=== PATIENT | male | born 1950 | race Caucasian/White ===

== ENCOUNTER 2017-10-01 19:46 | Emergency (ER) | payer MEDICARE, SELFPAY ==
[~2017-10-01] VITALS: Ht 165.1 cm; Wt 41.7 kg
[~2017-10-01 19:46] MED LIST: ALBU3IS INH; ALBU4 PO; AZIT250 PO; BENZ100A PO; COMBIVENT RESPIM4 GM INH; DULERA 100 MCG/13 GM INH; FLUSAL2505 INH; LEVFLO500 PO; LEVSOD50 PO; LISI20 PO; LOSA50 PO; MELO7.5 PO; Norvasc5 MG PO; PARO10 PO; PRED20 PO; Prednisone20 MG PO; TIOT18 INH; Zithromax250 MG PO
[2017-10-01 20:55] LABS: BASOPHILS ABSOLUTE AUTO 0.07 K/mm3 (0.00-0.23); BASOPHILS PERCENT AUTO 1 % (0-2); EOSINOPHILS ABSOLUTE AUTO 0.17 K/mm3 (0.00-0.68); EOSINOPHILS PERCENT AUTO 2 % (0-6); Hematocrit 44.2 % (37.0-53.0); Hemoglobin 15.2 g/dL (13.5-17.5); IMMATURE GRAN ABSOLUTE AUTO 0.02 K/mm3 (0.00-0.10); IMMATURE GRAN PERCENT AUTO 0 % (0-1); LYMPHOCYTES ABSOLUTE AUTO 1.75 K/mm3 (0.84-5.20); LYMPHOCYTES PERCENT AUTO 23 % (21-46); MONOCYTES PERCENT AUTO 7 % (4-13); Mean Corpuscular HGB 32.8 pg (26.0-34.0); Mean Corpuscular HGB Conc 34.4 g/dL (31.5-36.5); Mean Corpuscular Volume 96 fL (80-100); Mean Platelet Volume 9.1 fL (9.1-12.4); NEUTROPHILS ABSOLUTE AUTO 5.05 K/mm3 (1.96-9.15); NEUTROPHILS PERCENT AUTO 67 % (41-73); Platelet Count 261 K/mm3 (150-400); RDW Coefficient Variation 13.2 % (11.7-14.2); RDW Standard Deviation 46.3 fL (35.1-46.3); Red Blood Cell Count 4.63 M/mm3 (4.30-5.90); White Blood Cell Count 7.56 K/mm3 (4.00-11.30)
[2017-10-01 21:14] LABS: Alanine Aminotransfer (ALT/SGP 18 U/L (12-78); Albumin, Blood 3.8 g/dL (3.4-5.0); Alk Phos 85 U/L (50-136); Anion Gap 7 mmol/L (6-16); Aspartate Aminotrans (AST/SGOT 21 U/L (12-37); Bilirubin, Total 0.3 mg/dL (0.1-1.0); Blood Urea Nitrogen 15 mg/dL (8-24); Bun/Creatinine Ratio 17.1 (12.0-20.0); CO2, Blood 27 mmol/L (21-32); Chloride, Blood 100 mmol/L (98-108); Creatinine, Blood 0.88 mg/dL (0.60-1.20); Globulin, Blood 3.8 g/dL (2.2-4.0); Glomerular Filtration Rate >60 (60-); Glucose, Blood 99 mg/dL (70-99); Potassium, Blood 4.3 mmol/L (3.5-5.5); Sodium, Blood 134 mmol/L (136-145); Total Protein, Blood 7.6 g/dL (6.4-8.2); Troponin I <0.015 ng/mL (0.000-0.040)
[2017-10-02] MEDS ORDERED: Prednisone20 MG PO (01:35)
== END 2017-10-02 01:59 | disposition home or self-care (01) ==
LOC: ER 19:46
PROVIDERS: Emergency Medicine
DX: J44.1 Chronic obstructive pulmonary disease with (acute) exacerbation (principal); I10 Essential (primary) hypertension; E03.9 Hypothyroidism, unspecified; F17.200 Nicotine dependence, unspecified, uncomplicated; Z79.899 Other long term (current) drug therapy; Z79.52 Long term (current) use of systemic steroids
CPT/HCPCS: 36415; 71046; 80053; 83880; 84484; 85025; 93005; 93010; 94640; 96374; 99284; J2930

== ENCOUNTER 2017-12-20 10:16 | Inpatient (IN) | payer MEDICARE, SELFPAY ==
[~2017-12-20] VITALS: Ht 165.1 cm; Wt 43.2 kg
[2017-12-20 10:44] LABS: PCO2 Arterial 33.9 mmHg (35-45); PO2 Arterial 62.9 mmHg (80-100); pH Blood Arterial 7.45 (7.35-7.45)
[2017-12-20 10:55] LABS: BASOPHILS ABSOLUTE AUTO 0.12 K/mm3 (0.00-0.23); BASOPHILS PERCENT AUTO 1 % (0-2); EOSINOPHILS PERCENT AUTO 0 % (0-6); Hemoglobin 15.1 g/dL (13.5-17.5); IMMATURE GRAN ABSOLUTE AUTO 0.06 K/mm3 (0.00-0.10); IMMATURE GRAN PERCENT AUTO 0 % (0-1); LYMPHOCYTES ABSOLUTE AUTO 0.75 K/mm3 (0.84-5.20); LYMPHOCYTES PERCENT AUTO 5 % (21-46); MONOCYTES ABSOLUTE AUTO 0.71 K/mm3 (0.16-1.47); MONOCYTES PERCENT AUTO 5 % (4-13); Mean Corpuscular HGB 32.1 pg (26.0-34.0); Mean Corpuscular HGB Conc 33.6 g/dL (31.5-36.5); Mean Corpuscular Volume 96 fL (80-100); Mean Platelet Volume 9.2 fL (9.1-12.4); NEUTROPHILS PERCENT AUTO 88 % (41-73); Platelet Count 284 K/mm3 (150-400); RDW Coefficient Variation 12.5 % (11.7-14.2); RDW Standard Deviation 44.8 fL (35.1-46.3); Red Blood Cell Count 4.71 M/mm3 (4.30-5.90); White Blood Cell Count 13.84 K/mm3 (4.00-11.30)
[2017-12-20 11:23] LABS: Alanine Aminotransfer (ALT/SGP 25 U/L (12-78); Albumin, Blood 3.9 g/dL (3.4-5.0); Albumin/Globulin Ratio 0.8 (0.8-1.8); Alk Phos 99 U/L (50-136); Anion Gap 9 mmol/L (6-16); Aspartate Aminotrans (AST/SGOT 26 U/L (12-37); Bilirubin, Total 0.7 mg/dL (0.1-1.0); Blood Urea Nitrogen 14 mg/dL (8-24); Bun/Creatinine Ratio 15.2 (12.0-20.0); CO2, Blood 24 mmol/L (21-32); Calcium, Blood 9.7 mg/dL (8.5-10.1); Chloride, Blood 92 mmol/L (98-108); Creatinine, Blood 0.92 mg/dL (0.60-1.20); Globulin, Blood 4.6 g/dL (2.2-4.0); Glomerular Filtration Rate >60 (60-); Glucose, Blood 101 mg/dL (70-99); Potassium, Blood 4.4 mmol/L (3.5-5.5); Sodium, Blood 125 mmol/L (136-145); Total Protein, Blood 8.5 g/dL (6.4-8.2); Troponin I <0.015 ng/mL (0.000-0.040)
[2017-12-20] MEDS ORDERED: AMLO5 PO (12:14)
[2017-12-20] MEDS ORDERED: CLON.1 PO (12:15)
[2017-12-20] MEDS ORDERED: ALBU3IS INH (12:16)
[2017-12-20 15:24] LABS: BASOPHILS ABSOLUTE AUTO 0.07 K/mm3 (0.00-0.23); BASOPHILS PERCENT AUTO 1 % (0-2); EOSINOPHILS PERCENT AUTO 0 % (0-6); Hematocrit 39.6 % (37.0-53.0); Hemoglobin 13.6 g/dL (13.5-17.5); IMMATURE GRAN ABSOLUTE AUTO 0.05 K/mm3 (0.00-0.10); IMMATURE GRAN PERCENT AUTO 0 % (0-1); LYMPHOCYTES ABSOLUTE AUTO 0.63 K/mm3 (0.84-5.20); LYMPHOCYTES PERCENT AUTO 5 % (21-46); MONOCYTES PERCENT AUTO 4 % (4-13); Mean Corpuscular HGB 32.2 pg (26.0-34.0); Mean Corpuscular HGB Conc 34.3 g/dL (31.5-36.5); Mean Corpuscular Volume 94 fL (80-100); Mean Platelet Volume 9.2 fL (9.1-12.4); NEUTROPHILS ABSOLUTE AUTO 10.75 K/mm3 (1.96-9.15); NEUTROPHILS PERCENT AUTO 90 % (41-73); Platelet Count 231 K/mm3 (150-400); RDW Coefficient Variation 12.6 % (11.7-14.2); RDW Standard Deviation 43.8 fL (35.1-46.3); Red Blood Cell Count 4.23 M/mm3 (4.30-5.90)
[2017-12-20 15:39] LABS: International Normalized Ratio 1.07; Prothrombin Time Results 11.2 Sec (9.7-11.5)
[2017-12-20] MEDS ORDERED: ALBU90OI6 INH (16:55)
[2017-12-20] MEDS ORDERED: STIOLTO RESPIMAT4 GM (16:55)
[2017-12-21 04:29] LABS: BASOPHILS ABSOLUTE AUTO 0.01 K/mm3 (0.00-0.23); BASOPHILS PERCENT AUTO 0 % (0-2); EOSINOPHILS PERCENT AUTO 0 % (0-6); Hematocrit 39.2 % (37.0-53.0); Hemoglobin 13.2 g/dL (13.5-17.5); IMMATURE GRAN ABSOLUTE AUTO 0.09 K/mm3 (0.00-0.10); IMMATURE GRAN PERCENT AUTO 1 % (0-1); LYMPHOCYTES ABSOLUTE AUTO 0.26 K/mm3 (0.84-5.20); LYMPHOCYTES PERCENT AUTO 2 % (21-46); MONOCYTES ABSOLUTE AUTO 0.17 K/mm3 (0.16-1.47); MONOCYTES PERCENT AUTO 1 % (4-13); Mean Corpuscular HGB Conc 33.7 g/dL (31.5-36.5); Mean Corpuscular Volume 95 fL (80-100); Mean Platelet Volume 9.2 fL (9.1-12.4); NEUTROPHILS ABSOLUTE AUTO 11.93 K/mm3 (1.96-9.15); NEUTROPHILS PERCENT AUTO 96 % (41-73); Platelet Count 200 K/mm3 (150-400); RDW Coefficient Variation 12.4 % (11.7-14.2); RDW Standard Deviation 43.8 fL (35.1-46.3); Red Blood Cell Count 4.12 M/mm3 (4.30-5.90); White Blood Cell Count 12.46 K/mm3 (4.00-11.30)
[2017-12-21 04:53] LABS: Anion Gap 4 mmol/L (6-16); Blood Urea Nitrogen 16 mg/dL (8-24); Bun/Creatinine Ratio 20.2 (12.0-20.0); CO2, Blood 28 mmol/L (21-32); Calcium, Blood 8.1 mg/dL (8.5-10.1); Chloride, Blood 98 mmol/L (98-108); Creatinine, Blood 0.79 mg/dL (0.60-1.20); Glomerular Filtration Rate >60 (60-); Glucose, Blood 175 mg/dL (70-99); Potassium, Blood 3.8 mmol/L (3.5-5.5); Sodium, Blood 130 mmol/L (136-145)
[2017-12-21 05:01] LABS: Thyroxine (T4) 5.3 ug/dL (4.5-12.1)
[2017-12-22 04:51] LABS: BASOPHILS ABSOLUTE AUTO 0.01 K/mm3 (0.00-0.23); BASOPHILS PERCENT AUTO 0 % (0-2); EOSINOPHILS PERCENT AUTO 0 % (0-6); Hematocrit 37.3 % (37.0-53.0); Hemoglobin 12.6 g/dL (13.5-17.5); IMMATURE GRAN ABSOLUTE AUTO 0.14 K/mm3 (0.00-0.10); IMMATURE GRAN PERCENT AUTO 1 % (0-1); LYMPHOCYTES ABSOLUTE AUTO 0.26 K/mm3 (0.84-5.20); LYMPHOCYTES PERCENT AUTO 2 % (21-46); MONOCYTES ABSOLUTE AUTO 0.37 K/mm3 (0.16-1.47); MONOCYTES PERCENT AUTO 2 % (4-13); Mean Corpuscular HGB 32.1 pg (26.0-34.0); Mean Corpuscular HGB Conc 33.8 g/dL (31.5-36.5); Mean Corpuscular Volume 95 fL (80-100); Mean Platelet Volume 9.4 fL (9.1-12.4); NEUTROPHILS PERCENT AUTO 95 % (41-73); Platelet Count 220 K/mm3 (150-400); RDW Coefficient Variation 12.5 % (11.7-14.2); RDW Standard Deviation 43.8 fL (35.1-46.3); Red Blood Cell Count 3.93 M/mm3 (4.30-5.90); White Blood Cell Count 15.88 K/mm3 (4.00-11.30)
[2017-12-22 05:13] LABS: Anion Gap 9 mmol/L (6-16); Blood Urea Nitrogen 19 mg/dL (8-24); Bun/Creatinine Ratio 25.2 (12.0-20.0); CO2, Blood 26 mmol/L (21-32); Calcium, Blood 8.3 mg/dL (8.5-10.1); Chloride, Blood 98 mmol/L (98-108); Creatinine, Blood 0.75 mg/dL (0.60-1.20); Glomerular Filtration Rate >60 (60-); Glucose, Blood 148 mg/dL (70-99); Potassium, Blood 3.7 mmol/L (3.5-5.5); Sodium, Blood 133 mmol/L (136-145)
[2017-12-24 05:04] LABS: Hematocrit 38.9 % (37.0-53.0); Hemoglobin 12.9 g/dL (13.5-17.5); Mean Corpuscular HGB 31.9 pg (26.0-34.0); Mean Corpuscular HGB Conc 33.2 g/dL (31.5-36.5); Mean Corpuscular Volume 96 fL (80-100); Mean Platelet Volume 9.2 fL (9.1-12.4); Platelet Count 209 K/mm3 (150-400); RDW Coefficient Variation 12.4 % (11.7-14.2); RDW Standard Deviation 44.3 fL (35.1-46.3); Red Blood Cell Count 4.04 M/mm3 (4.30-5.90); White Blood Cell Count 6.73 K/mm3 (4.00-11.30)
[2017-12-24 05:20] LABS: Anion Gap 6 mmol/L (6-16); Blood Urea Nitrogen 16 mg/dL (8-24); Bun/Creatinine Ratio 24.8 (12.0-20.0); CO2, Blood 30 mmol/L (21-32); Calcium, Blood 8.5 mg/dL (8.5-10.1); Chloride, Blood 97 mmol/L (98-108); Creatinine, Blood 0.65 mg/dL (0.60-1.20); Glomerular Filtration Rate >60 (60-); Glucose, Blood 97 mg/dL (70-99); Sodium, Blood 133 mmol/L (136-145)
[2017-12-25] MEDS ORDERED: GUAI600T33 PO (10:19)
[2017-12-25] MEDS ORDERED: LIOT5 PO (10:20)
[2017-12-25] MEDS ORDERED: LEVSOD75 PO (10:20)
[2017-12-25] MEDS ORDERED: SACC250C PO (10:21)
[2017-12-25] MEDS ORDERED: PRED20 PO (10:21)
[2017-12-25] MEDS ORDERED: DOXY100 PO (10:22)
== END 2017-12-25 14:20 | disposition home or self-care (01) | DRG 871 ==
LOC: ER 10:16 → MEDS 14:14 → ICUW 14:14 → MEDS 12-21 14:56
PROVIDERS: Emergency Medicine; Internal Medicine
DX: A41.9 Sepsis, unspecified organism (principal); J18.9 Pneumonia, unspecified organism; J96.21 Acute and chronic respiratory failure with hypoxia; E43 Unspecified severe protein-calorie malnutrition; Z68.1 Body mass index [BMI] 19.9 or less, adult; E87.1 Hypo-osmolality and hyponatremia; J44.0 Chronic obstructive pulmonary disease with (acute) lower respiratory infection; R65.20 Severe sepsis without septic shock; I10 Essential (primary) hypertension; E03.9 Hypothyroidism, unspecified; J20.9 Acute bronchitis, unspecified; F17.210 Nicotine dependence, cigarettes, uncomplicated; Z79.899 Other long term (current) drug therapy
CPT/HCPCS: 36415; 36600; 71046; 80048; 80053; 82803; 83605; 83880; 84436; 84443; 84481; 84484; 85025; 85027; 85610; 85730; 87040; 93005; 93010; 94640; 94760; 94761; 96365; 96366; 96375; 99285; J0456; J0696; J1650; J2930; J7030; J7050; J7120

== ENCOUNTER 2018-11-01 13:09 | Inpatient (IN) | payer MEDICARE ==
[~2018-11-01] VITALS: Ht 175.3 cm; Wt 36.8 kg
[~2018-11-01 13:09] MED LIST changes: +ALBU90OI6 INH; +AMLO5 PO; +CLON.1 PO; +DOXY100 PO; +GUAI600T33 PO; +LEVSOD75 PO; +LIOT5 PO; +SACC250C PO; +STIOLTO RESPIMAT4 GM
[2018-11-01] MEDS ORDERED: OXYM.05NI (13:57)
[2018-11-01] MEDS ORDERED: Prednisone20 MG PO (13:57)
[2018-11-01 14:43] LABS: BASOPHILS ABSOLUTE AUTO 0.06 K/mm3 (0.00-0.23); BASOPHILS PERCENT AUTO 1 % (0-2); EOSINOPHILS ABSOLUTE AUTO 0.08 K/mm3 (0.00-0.68); EOSINOPHILS PERCENT AUTO 1 % (0-6); Hematocrit 39.8 % (37.0-53.0); Hemoglobin 12.9 g/dL (13.5-17.5); IMMATURE GRAN ABSOLUTE AUTO 0.01 K/mm3 (0.00-0.10); IMMATURE GRAN PERCENT AUTO 0 % (0-1); LYMPHOCYTES ABSOLUTE AUTO 1.06 K/mm3 (0.84-5.20); LYMPHOCYTES PERCENT AUTO 17 % (21-46); MONOCYTES ABSOLUTE AUTO 0.48 K/mm3 (0.16-1.47); MONOCYTES PERCENT AUTO 8 % (4-13); Mean Corpuscular HGB 32.8 pg (26.0-34.0); Mean Corpuscular HGB Conc 32.4 g/dL (31.5-36.5); Mean Corpuscular Volume 101 fL (80-100); Mean Platelet Volume 9.1 fL (9.1-12.4); NEUTROPHILS PERCENT AUTO 73 % (41-73); Platelet Count 255 K/mm3 (150-400); RDW Coefficient Variation 13.9 % (11.7-14.2); RDW Standard Deviation 52.2 fL (35.1-46.3); Red Blood Cell Count 3.93 M/mm3 (4.30-5.90); White Blood Cell Count 6.29 K/mm3 (4.00-11.30)
[2018-11-01 14:54] LABS: Alanine Aminotransfer (ALT/SGP 20 U/L (12-78); Albumin, Blood 3.7 g/dL (3.4-5.0); Albumin/Globulin Ratio 1.1 (0.8-1.8); Alk Phos 72 U/L (50-136); Anion Gap 9 mmol/L (6-16); Aspartate Aminotrans (AST/SGOT 30 U/L (12-37); Bilirubin, Total 0.4 mg/dL (0.1-1.0); Blood Urea Nitrogen 16 mg/dL (8-24); Bun/Creatinine Ratio 19.6 (12.0-20.0); CO2, Blood 28 mmol/L (21-32); Calcium, Blood 8.7 mg/dL (8.5-10.1); Chloride, Blood 96 mmol/L (98-108); Creatinine, Blood 0.82 mg/dL (0.60-1.20); Globulin, Blood 3.5 g/dL (2.2-4.0); Glomerular Filtration Rate >60 (60-); Glucose, Blood 96 mg/dL (70-99); Potassium, Blood 4.1 mmol/L (3.5-5.5); Sodium, Blood 133 mmol/L (136-145); Total Protein, Blood 7.2 g/dL (6.4-8.2); Troponin I <0.015 ng/mL (0.000-0.040)
[2018-11-01 15:02] LABS: Influenza A Negative (NEGATIVE); Influenza B Negative (NEGATIVE)
--- NOTE | 2018-11-01 18:49 | NUR ---
SUMMARY PT ADMITTED FROM THE ER FOR COPD EXACERBATION, PT IS ALERT AND ORIENTED, IS A ONE PERSON TO STANDBY ASSIST, PT GETS SOB WITH ANY ACTIVITY, PT ABLE TO USE THE URINAL INDEPENDENTLY AND STATES HE HAS NO ISSUES WITH SWALLOWING, PT HAS NO TEETH SO A SOFT DIET HAS BEEN ORDERED, PT LIVES AT HOME WITH HIS SPOUSE WHO HAS DEMENTIA, HE CARES FOR HER WITH ASSISTANCE FROM HIS GRAND DAUGHTER WHO IS WITH HER NOW, PT ON 2L NC AT BASE LINE FROM [facility], HIS HOME TANK IS IN THE ROOM, PT IS PLEASANT AND COOPERATIVE WITH CARE, VSS, NO ACUTE CHANGES, WILL CONT TO MONITOR
--- NOTE | 2018-11-02 04:29 | NUR ---
SHIFT SUMMARY PT HAS HAD UNEVENTFUL NIGHT, HAS SLEPT OFF AND ON T/O THE NIGHT. HAS BEEN USING URINAL AT BEDSIDE. PT BECOMES MORE DYSPNEIC WITH EXERTION AND USES PURSED LIP BREATHING. OXYGEN ON AT 2L/NC CONTINUOUS. PT OFFERS NO C/O'S OTHER THAN CRAMPING IN HIS FEET EARLY ON IN SHIFT. PT RECEIVED TYLENOL WITH RELIEF. WILL CONTINUE TO MONITOR.
[2018-11-02 05:55] LABS: Anion Gap 10 mmol/L (6-16); Blood Urea Nitrogen 15 mg/dL (8-24); Bun/Creatinine Ratio 17.8 (12.0-20.0); CO2, Blood 29 mmol/L (21-32); Calcium, Blood 8.7 mg/dL (8.5-10.1); Chloride, Blood 94 mmol/L (98-108); Creatinine, Blood 0.84 mg/dL (0.60-1.20); Glomerular Filtration Rate >60 (60-); Glucose, Blood 153 mg/dL (70-99); Potassium, Blood 4.1 mmol/L (3.5-5.5); Sodium, Blood 133 mmol/L (136-145)
--- NOTE | 2018-11-02 18:40 | NUR ---
SHIFT SUMMARY PLEASANT TODAY WITH NO C/O. EATING AND DRINKING WELL. FAMILY TO VISIT. 2L NC HERE AND AT HOME. DYSPNEA ON EXERTION BUT ABLE TO WALK TO BATHROOM WITH SBA QUITE WELL. CONTINENT. DIURETICS. BLE SWELLING IMPROVED.
--- NOTE | 2018-11-03 04:46 | NUR ---
SHIFT SUMMARY NO CHANGES THIS SHIFT. PT WAS AWAKE FOR MOST OF THE NIGHT, BUT HAS BEEN ABLE TO GET SOME REST DURING SECOND HALF OF SHIFT. PT HAS BEEN MEDICATED X1 WITH TYLENOL FOR HEADACHE WHICH PROVIDED RELEIF. PT ALSO MEDICATED WITH TUMS FOR HEART BURN. O2 IN PLACE, LUNG SOUNDS WITH WHEEZES TO UPPER LOBES, DIMINISHED IN THE BASES. PT REPORTS NON PRODUCTIVE COUGH, AND STATES HE FEELS LIKE HE HAS SOMETHING TO COUGH UP, BUT THAT HE IS UNABLE. PT HAS BEEN INDEPENDENT IN ROOM. VOIDING WITHOUT DIFFICULTY. ASSESSMENT OTHERWISE HAS REMAINED UNCHANGED. WILL CONTINUE TO MONITOR AND REPORT TO ONCOMING RN.
[2018-11-03 05:53] LABS: Anion Gap 8 mmol/L (6-16); Blood Urea Nitrogen 17 mg/dL (8-24); Bun/Creatinine Ratio 21.3 (12.0-20.0); CO2, Blood 34 mmol/L (21-32); Chloride, Blood 88 mmol/L (98-108); Glomerular Filtration Rate >60 (60-); Glucose, Blood 159 mg/dL (70-99); Potassium, Blood 4.1 mmol/L (3.5-5.5); Sodium, Blood 130 mmol/L (136-145)
--- NOTE | 2018-11-03 18:53 | NUR ---
SHIFT SUMMARY PATIENT A&O X4, INDEPENDENT IN THE ROOM. MEDICATED FOR A HEADACHE X1. C/O REFLUX THROUGHOUT THE SHIFT. MEDICATED PER Nov. DENIES ANY SOB OR NAUSEA. O2 @ 2L NC. BED IN LOWEST POSITION, CALL LIGHT WITHIN REACH. NO ACUTE CHANGES. RN WILL CONTINUE TO MONITOR.
--- NOTE | 2018-11-04 04:59 | NUR ---
SHIFT SUMMARY NO ACUTE CHANGES. PT COMPLAINS OF ACID REFLUX THAT IS RELIEVED WITH TUMS. A/OX4, INDEPENDENT AND AMBULATORY IN THE ROOM. LUNGS DIMINISHED T/O, 2L O2 IN PLACE. VITALS HAVE BEEN STABLE. ASSESSMENT UNCHANGED. WILL CONTINUE TO MONITOR AND REPORT TO ONCOMING RN.
[2018-11-04] MEDS ORDERED: STIOLTO RESPIMAT4 GM (05:42)
[2018-11-04] MEDS ORDERED: GUAI600T33 PO (11:27)
[2018-11-04] MEDS ORDERED: PRED20 (11:31)
[2018-11-04] MEDS ORDERED: SACC250C PO (11:32)
[2018-11-04] MEDS ORDERED: TUMS300 MG PO (11:34)
[2018-11-04] MEDS ORDERED: CALCIUM 600 +1 EAC4 PO (11:35)
[2018-11-04] MEDS ORDERED: HYDCHL25 PO (11:36)
[2018-11-04] MEDS ORDERED: PANT40 PO (11:36)
[2018-11-04] MEDS ORDERED: AZIT500 PO (11:37)
[2018-11-04] MEDS ORDERED: ALBU2.5V5 NEB (11:37)
[2018-11-04] MEDS ORDERED: BUDE.25 NEB (11:39)
--- NOTE | 2018-11-04 14:07 | NUR ---
DISCHARGE [facility] PATIENT A&O X4. ALL DISCHARGE INFORMATION REVIEWED. IV D/C, WNL. PATIENT DISCHARGED WITH PORTLABLE OXYGEN TANK. GRANDDAUGHTER AT HIS SIDE. ALL BELONGINGS IN HAND. ESCORTED OUT BY REPAIR ARMATURE WINDER IN WHEELCHAIR.
[2018-11-19] MEDS ORDERED: **INCOMPLETE MED REC (17:02)
[2018-11-19] MEDS ORDERED: AMLO5 PO (17:04)
[2018-11-19] MEDS ORDERED: TRAZ50 PO (17:05)
[2018-11-19] MEDS ORDERED: HYDCHL25 PO (17:06)
[2018-11-19] MEDS ORDERED: Melatonin5 M1 PO (17:07)
[2018-11-19] MEDS ORDERED: CALCIUM 500 +1 EAC4 PO (17:09)
[2018-11-19] MEDS ORDERED: ALBU90OI INH (17:21)
[2018-11-19] MEDS ORDERED: STIOLTO RESPIMAT4 GM INH (17:21)
[2018-11-19] MEDS ORDERED: DULERA 200 MCG/13 GM INH (17:22)
[2018-11-21] MEDS ORDERED: GUAI600T33 PO (11:20)
[2018-11-21] MEDS ORDERED: PRED20 PO (11:22)
[2018-11-21] MEDS ORDERED: CLON.1 PO (13:34)
== END 2018-11-04 13:56 | disposition home or self-care (01) | DRG 190 ==
LOC: ER 13:09 → MEDS 13:10
PROVIDERS: Emergency Medicine; ADMIT Internal Medicine
DX: J44.0 Chronic obstructive pulmonary disease with (acute) lower respiratory infection (principal); E43 Unspecified severe protein-calorie malnutrition; E87.1 Hypo-osmolality and hyponatremia; J96.11 Chronic respiratory failure with hypoxia; Z68.1 Body mass index [BMI] 19.9 or less, adult; J20.9 Acute bronchitis, unspecified; J44.1 Chronic obstructive pulmonary disease with (acute) exacerbation; I10 Essential (primary) hypertension; E03.9 Hypothyroidism, unspecified; K21.9 Gastro-esophageal reflux disease without esophagitis; M19.90 Unspecified osteoarthritis, unspecified site; F17.210 Nicotine dependence, cigarettes, uncomplicated; Z99.81 Dependence on supplemental oxygen; Z79.899 Other long term (current) drug therapy
CPT/HCPCS: 36415; 71046; 80048; 80053; 83880; 84484; 85025; 87804; 93005; 93010; 94640; 94760; 96365; 99285-25; J0456; J0696; J1650; J2405; J2930; J3475; J7050

== ENCOUNTER 2018-12-05 20:32 | Emergency (ER) | payer MEDICARE ==
[~2018-12-05] VITALS: Ht 165.1 cm; Wt 39.9 kg
[~2018-12-05 20:32] MED LIST changes: +**INCOMPLETE MED REC; +ALBU2.5V5 NEB; +ALBU90OI INH; +AZIT500 PO; +BUDE.25 NEB; +CALCIUM 500 +1 EAC4 PO; +CALCIUM 600 +1 EAC4 PO; +DULERA 200 MCG/13 GM INH; +HYDCHL25 PO; +Melatonin5 M1 PO; +OXYM.05NI; +PANT40 PO; +PRED20; +STIOLTO RESPIMAT4 GM INH; +TRAZ50 PO; +TUMS300 MG PO
[2018-12-05 21:14] LABS: BASOPHILS ABSOLUTE AUTO 0.03 K/mm3 (0.00-0.23); BASOPHILS PERCENT AUTO 0 % (0-2); EOSINOPHILS ABSOLUTE AUTO 0.01 K/mm3 (0.00-0.68); EOSINOPHILS PERCENT AUTO 0 % (0-6); Hematocrit 41.8 % (37.0-53.0); IMMATURE GRAN ABSOLUTE AUTO 0.08 K/mm3 (0.00-0.10); IMMATURE GRAN PERCENT AUTO 1 % (0-1); LYMPHOCYTES ABSOLUTE AUTO 0.96 K/mm3 (0.84-5.20); LYMPHOCYTES PERCENT AUTO 6 % (21-46); MONOCYTES ABSOLUTE AUTO 0.95 K/mm3 (0.16-1.47); MONOCYTES PERCENT AUTO 6 % (4-13); Mean Corpuscular HGB 33.4 pg (26.0-34.0); Mean Corpuscular HGB Conc 33.5 g/dL (31.5-36.5); Mean Corpuscular Volume 100 fL (80-100); Mean Platelet Volume 8.4 fL (9.1-12.4); NEUTROPHILS ABSOLUTE AUTO 13.14 K/mm3 (1.96-9.15); NEUTROPHILS PERCENT AUTO 87 % (41-73); Platelet Count 281 K/mm3 (150-400); RDW Coefficient Variation 12.5 % (11.7-14.2); RDW Standard Deviation 46.4 fL (35.1-46.3); Red Blood Cell Count 4.19 M/mm3 (4.30-5.90); White Blood Cell Count 15.17 K/mm3 (4.00-11.30)
[2018-12-05 21:38] LABS: Alanine Aminotransfer (ALT/SGP 24 U/L (12-78); Albumin, Blood 3.7 g/dL (3.4-5.0); Albumin/Globulin Ratio 1.1 (0.8-1.8); Alk Phos 75 U/L (50-136); Anion Gap 7 mmol/L (6-16); Aspartate Aminotrans (AST/SGOT 24 U/L (12-37); Bilirubin, Total 0.5 mg/dL (0.1-1.0); Blood Urea Nitrogen 17 mg/dL (8-24); Bun/Creatinine Ratio 34.3 (12.0-20.0); CO2, Blood 33 mmol/L (21-32); Chloride, Blood 88 mmol/L (98-108); Globulin, Blood 3.5 g/dL (2.2-4.0); Glomerular Filtration Rate >60 (60-); Glucose, Blood 93 mg/dL (70-99); Potassium, Blood 3.8 mmol/L (3.5-5.5); Sodium, Blood 128 mmol/L (136-145); Total Protein, Blood 7.2 g/dL (6.4-8.2); Troponin I 0.021 ng/mL (0.000-0.040)
[2018-12-05] MEDS ORDERED: Zithromax250 MG PO (22:51)
== END 2018-12-06 00:02 | disposition home or self-care (01) ==
LOC: ER 20:32
PROVIDERS: Emergency Medicine
DX: J44.1 Chronic obstructive pulmonary disease with (acute) exacerbation (principal); E87.6 Hypokalemia; Z79.899 Other long term (current) drug therapy; Z79.52 Long term (current) use of systemic steroids; E03.9 Hypothyroidism, unspecified; I10 Essential (primary) hypertension; F17.210 Nicotine dependence, cigarettes, uncomplicated
CPT/HCPCS: 36415; 71046; 80053; 83880; 84484; 85025; 93005; 93010; 94640; 96374; 99285-25; J2930; J7030

== ENCOUNTER → 2018-12-13 | Outpatient (CLI) | payer MEDICARE ==
[~2018-12-13] MED LIST changes: +Nystatin15 GM TOP
== END | disposition home or self-care (01) ==
LOC: LAB EV 14:37 → LAB SHORT 14:37
DX: R60.0 Localized edema (principal)
CPT/HCPCS: 83880

== ENCOUNTER 2018-12-17 15:04 | Emergency (ER) | payer MEDICARE ==
[~2018-12-17] VITALS: Ht 165.1 cm; Wt 39.9 kg
[~2018-12-17 15:04] MED LIST changes: -Nystatin15 GM TOP
[2018-12-17 15:53] LABS: PCO2 Arterial 47.5 mmHg (35-45); PO2 Arterial 100 mmHg (80-100); pH Blood Arterial 7.44 (7.35-7.45)
[2018-12-17 16:20] LABS: BASOPHILS ABSOLUTE AUTO 0.02 K/mm3 (0.00-0.23); BASOPHILS PERCENT AUTO 0 % (0-2); EOSINOPHILS ABSOLUTE AUTO 0.07 K/mm3 (0.00-0.68); EOSINOPHILS PERCENT AUTO 1 % (0-6); Hematocrit 40.4 % (37.0-53.0); IMMATURE GRAN ABSOLUTE AUTO 0.03 K/mm3 (0.00-0.10); IMMATURE GRAN PERCENT AUTO 0 % (0-1); LYMPHOCYTES ABSOLUTE AUTO 1.21 K/mm3 (0.84-5.20); LYMPHOCYTES PERCENT AUTO 14 % (21-46); MONOCYTES ABSOLUTE AUTO 0.55 K/mm3 (0.16-1.47); MONOCYTES PERCENT AUTO 6 % (4-13); Mean Corpuscular HGB 32.9 pg (26.0-34.0); Mean Corpuscular HGB Conc 32.2 g/dL (31.5-36.5); Mean Corpuscular Volume 102 fL (80-100); Mean Platelet Volume 8.2 fL (9.1-12.4); NEUTROPHILS ABSOLUTE AUTO 6.87 K/mm3 (1.96-9.15); NEUTROPHILS PERCENT AUTO 79 % (41-73); Platelet Count 293 K/mm3 (150-400); RDW Coefficient Variation 12.5 % (11.7-14.2); RDW Standard Deviation 47.8 fL (35.1-46.3); Red Blood Cell Count 3.95 M/mm3 (4.30-5.90); White Blood Cell Count 8.75 K/mm3 (4.00-11.30)
[2018-12-17] MEDS ORDERED: Prednisone20 MG PO (16:42)
[2018-12-17 16:47] LABS: Alanine Aminotransfer (ALT/SGP 34 U/L (12-78); Albumin, Blood 2.8 g/dL (3.4-5.0); Albumin/Globulin Ratio 0.8 (0.8-1.8); Alk Phos 71 U/L (50-136); Anion Gap 4 mmol/L (6-16); Aspartate Aminotrans (AST/SGOT 24 U/L (12-37); Bilirubin, Total 0.3 mg/dL (0.1-1.0); Blood Urea Nitrogen 12 mg/dL (8-24); Bun/Creatinine Ratio 19.1 (12.0-20.0); CO2, Blood 33 mmol/L (21-32); Calcium, Blood 8.7 mg/dL (8.5-10.1); Chloride, Blood 94 mmol/L (98-108); Creatinine, Blood 0.63 mg/dL (0.60-1.20); Globulin, Blood 3.6 g/dL (2.2-4.0); Glomerular Filtration Rate >60 (60-); Glucose, Blood 82 mg/dL (70-99); Potassium, Blood 3.8 mmol/L (3.5-5.5); Sodium, Blood 131 mmol/L (136-145); Total Protein, Blood 6.4 g/dL (6.4-8.2)
[2018-12-17] MEDS ORDERED: Nystatin15 GM TOP (16:53)
== END 2018-12-17 17:15 | disposition home or self-care (01) ==
LOC: ER 15:04
PROVIDERS: Emergency Medicine
DX: J44.1 Chronic obstructive pulmonary disease with (acute) exacerbation (principal); L08.9 Local infection of the skin and subcutaneous tissue, unspecified; Z79.899 Other long term (current) drug therapy; Z79.52 Long term (current) use of systemic steroids; E03.9 Hypothyroidism, unspecified; I10 Essential (primary) hypertension; F17.200 Nicotine dependence, unspecified, uncomplicated
CPT/HCPCS: 36600; 71045; 80053; 82803; 85025; 93005; 93010; 99285-25

== ENCOUNTER 2018-12-17 22:20 | Emergency (ER) | payer MEDICARE ==
[~2018-12-17] VITALS: Ht 165.1 cm; Wt 39.9 kg
[~2018-12-17 22:20] MED LIST changes: +Nystatin15 GM TOP
[2018-12-18 00:56] LABS: BASOPHILS ABSOLUTE AUTO 0.03 K/mm3 (0.00-0.23); BASOPHILS PERCENT AUTO 0 % (0-2); EOSINOPHILS ABSOLUTE AUTO 0.05 K/mm3 (0.00-0.68); EOSINOPHILS PERCENT AUTO 1 % (0-6); Hematocrit 36.6 % (37.0-53.0); Hemoglobin 12.1 g/dL (13.5-17.5); IMMATURE GRAN ABSOLUTE AUTO 0.03 K/mm3 (0.00-0.10); IMMATURE GRAN PERCENT AUTO 0 % (0-1); LYMPHOCYTES ABSOLUTE AUTO 1.18 K/mm3 (0.84-5.20); LYMPHOCYTES PERCENT AUTO 14 % (21-46); MONOCYTES ABSOLUTE AUTO 0.64 K/mm3 (0.16-1.47); MONOCYTES PERCENT AUTO 8 % (4-13); Mean Corpuscular HGB 33.2 pg (26.0-34.0); Mean Corpuscular HGB Conc 33.1 g/dL (31.5-36.5); Mean Corpuscular Volume 100 fL (80-100); Mean Platelet Volume 8.2 fL (9.1-12.4); NEUTROPHILS ABSOLUTE AUTO 6.53 K/mm3 (1.96-9.15); NEUTROPHILS PERCENT AUTO 77 % (41-73); Platelet Count 260 K/mm3 (150-400); RDW Coefficient Variation 12.4 % (11.7-14.2); RDW Standard Deviation 45.8 fL (35.1-46.3); Red Blood Cell Count 3.65 M/mm3 (4.30-5.90); White Blood Cell Count 8.46 K/mm3 (4.00-11.30)
[2018-12-18 01:15] LABS: Alanine Aminotransfer (ALT/SGP 27 U/L (12-78); Albumin, Blood 2.5 g/dL (3.4-5.0); Albumin/Globulin Ratio 0.8 (0.8-1.8); Alk Phos 60 U/L (50-136); Anion Gap 8 mmol/L (6-16); Aspartate Aminotrans (AST/SGOT 25 U/L (12-37); Bilirubin, Total 0.3 mg/dL (0.1-1.0); Blood Urea Nitrogen 12 mg/dL (8-24); Bun/Creatinine Ratio 20.8 (12.0-20.0); CO2, Blood 27 mmol/L (21-32); Calcium, Blood 8.2 mg/dL (8.5-10.1); Chloride, Blood 95 mmol/L (98-108); Creatinine, Blood 0.58 mg/dL (0.60-1.20); Globulin, Blood 3.3 g/dL (2.2-4.0); Glomerular Filtration Rate >60 (60-); Glucose, Blood 119 mg/dL (70-99); Potassium, Blood 3.7 mmol/L (3.5-5.5); Sodium, Blood 130 mmol/L (136-145); Total Protein, Blood 5.8 g/dL (6.4-8.2); Troponin I 0.016 ng/mL (0.000-0.040)
== END 2018-12-18 03:01 | disposition home or self-care (01) ==
LOC: ER 22:20
PROVIDERS: Emergency Medicine
DX: J44.1 Chronic obstructive pulmonary disease with (acute) exacerbation (principal); Z79.899 Other long term (current) drug therapy; Z79.52 Long term (current) use of systemic steroids; E03.9 Hypothyroidism, unspecified; I10 Essential (primary) hypertension; F17.210 Nicotine dependence, cigarettes, uncomplicated
CPT/HCPCS: 36415; 80053; 84484; 85025; 93005; 93010; 94640; 96365; 99285-25; J2930

== ENCOUNTER 2018-12-23 13:58 | Emergency (ER) | payer MEDICARE ==
[~2018-12-23] VITALS: Ht 165.1 cm; Wt 39.9 kg
[2018-12-23 14:43] LABS: BASOPHILS ABSOLUTE AUTO 0.03 K/mm3 (0.00-0.23); BASOPHILS PERCENT AUTO 0 % (0-2); EOSINOPHILS ABSOLUTE AUTO 0.01 K/mm3 (0.00-0.68); EOSINOPHILS PERCENT AUTO 0 % (0-6); Hematocrit 40.3 % (37.0-53.0); Hemoglobin 13.1 g/dL (13.5-17.5); IMMATURE GRAN ABSOLUTE AUTO 0.07 K/mm3 (0.00-0.10); IMMATURE GRAN PERCENT AUTO 1 % (0-1); LYMPHOCYTES ABSOLUTE AUTO 0.61 K/mm3 (0.84-5.20); LYMPHOCYTES PERCENT AUTO 5 % (21-46); MONOCYTES ABSOLUTE AUTO 0.22 K/mm3 (0.16-1.47); MONOCYTES PERCENT AUTO 2 % (4-13); Mean Corpuscular HGB 33.4 pg (26.0-34.0); Mean Corpuscular HGB Conc 32.5 g/dL (31.5-36.5); Mean Platelet Volume 8.6 fL (9.1-12.4); NEUTROPHILS PERCENT AUTO 93 % (41-73); Platelet Count 386 K/mm3 (150-400); RDW Coefficient Variation 12.5 % (11.7-14.2); RDW Standard Deviation 47.1 fL (35.1-46.3); Red Blood Cell Count 3.92 M/mm3 (4.30-5.90); White Blood Cell Count 13.54 K/mm3 (4.00-11.30)
[2018-12-23 14:57] LABS: Alanine Aminotransfer (ALT/SGP 31 U/L (12-78); Alk Phos 63 U/L (50-136); Anion Gap 7 mmol/L (6-16); Aspartate Aminotrans (AST/SGOT 24 U/L (12-37); Bilirubin, Total 0.3 mg/dL (0.1-1.0); Blood Urea Nitrogen 18 mg/dL (8-24); Bun/Creatinine Ratio 29.1 (12.0-20.0); CO2, Blood 28 mmol/L (21-32); Chloride, Blood 97 mmol/L (98-108); Creatinine, Blood 0.62 mg/dL (0.60-1.20); Glomerular Filtration Rate >60 (60-); Glucose, Blood 109 mg/dL (70-99); Potassium, Blood 4.3 mmol/L (3.5-5.5); Sodium, Blood 132 mmol/L (136-145)
[2018-12-23 14:59] LABS: Mean Corpuscular Volume 103 fL (80-100)
== END 2018-12-23 17:20 | disposition home or self-care (01) ==
LOC: ER 13:58
PROVIDERS: Physician Assistant
DX: J06.9 Acute upper respiratory infection, unspecified (principal); R06.02 Shortness of breath; F17.210 Nicotine dependence, cigarettes, uncomplicated; Z79.899 Other long term (current) drug therapy; Z79.52 Long term (current) use of systemic steroids
CPT/HCPCS: 36415; 71046; 80053; 84484; 85025; 93005; 93010; 99284-25

== ENCOUNTER 2018-12-30 22:11 | Emergency (ER) | payer MEDICARE, OTHER ==
[~2018-12-30] VITALS: Ht 165.1 cm; Wt 39.9 kg
[2018-12-30] MEDS ORDERED: PRED20 PO (22:21)
[2018-12-30 22:33] LABS: BASOPHILS ABSOLUTE AUTO 0.01 K/mm3 (0.00-0.23); BASOPHILS PERCENT AUTO 0 % (0-2); EOSINOPHILS ABSOLUTE AUTO 0.03 K/mm3 (0.00-0.68); EOSINOPHILS PERCENT AUTO 0 % (0-6); Hematocrit 39.8 % (37.0-53.0); IMMATURE GRAN ABSOLUTE AUTO 0.05 K/mm3 (0.00-0.10); IMMATURE GRAN PERCENT AUTO 1 % (0-1); LYMPHOCYTES ABSOLUTE AUTO 1.22 K/mm3 (0.84-5.20); LYMPHOCYTES PERCENT AUTO 13 % (21-46); MONOCYTES ABSOLUTE AUTO 0.59 K/mm3 (0.16-1.47); MONOCYTES PERCENT AUTO 6 % (4-13); Mean Corpuscular HGB 33.4 pg (26.0-34.0); Mean Corpuscular HGB Conc 32.7 g/dL (31.5-36.5); Mean Corpuscular Volume 102 fL (80-100); Mean Platelet Volume 8.5 fL (9.1-12.4); NEUTROPHILS ABSOLUTE AUTO 7.58 K/mm3 (1.96-9.15); NEUTROPHILS PERCENT AUTO 80 % (41-73); Platelet Count 277 K/mm3 (150-400); RDW Coefficient Variation 12.6 % (11.7-14.2); RDW Standard Deviation 47.4 fL (35.1-46.3); Red Blood Cell Count 3.89 M/mm3 (4.30-5.90); White Blood Cell Count 9.48 K/mm3 (4.00-11.30)
[2018-12-30 22:44] LABS: PCO2 Arterial 46.8 mmHg (35-45); PO2 Arterial 121 mmHg (80-100); pH Blood Arterial 7.44 (7.35-7.45)
[2018-12-30 22:54] LABS: Alanine Aminotransfer (ALT/SGP 26 U/L (12-78); Albumin, Blood 3.1 g/dL (3.4-5.0); Alk Phos 57 U/L (50-136); Anion Gap 5 mmol/L (6-16); Aspartate Aminotrans (AST/SGOT 20 U/L (12-37); Bilirubin, Total 0.3 mg/dL (0.1-1.0); Blood Urea Nitrogen 19 mg/dL (8-24); Bun/Creatinine Ratio 25.9 (12.0-20.0); CO2, Blood 33 mmol/L (21-32); Calcium, Blood 8.5 mg/dL (8.5-10.1); Chloride, Blood 97 mmol/L (98-108); Creatinine, Blood 0.73 mg/dL (0.60-1.20); Glomerular Filtration Rate >60 (60-); Glucose, Blood 184 mg/dL (70-99); Potassium, Blood 3.9 mmol/L (3.5-5.5); Sodium, Blood 135 mmol/L (136-145); Total Protein, Blood 6.1 g/dL (6.4-8.2)
[2018-12-31] MEDS ORDERED: Nystatin15 GM TOP (00:13)
== END 2018-12-31 00:40 | disposition home or self-care (01) ==
LOC: ER 22:11
PROVIDERS: Emergency Medicine
DX: J44.9 Chronic obstructive pulmonary disease, unspecified (principal); I10 Essential (primary) hypertension; E03.9 Hypothyroidism, unspecified; F17.210 Nicotine dependence, cigarettes, uncomplicated
CPT/HCPCS: 36415; 36600; 71045; 80053; 82803; 83605; 85025; 93005; 93010; 94644; 99284-25

== ENCOUNTER 2019-01-06 17:33 | Emergency (ER) | payer MEDICARE, OTHER ==
[~2019-01-06] VITALS: Ht 165.1 cm; Wt 39.0 kg
[~2019-01-06 17:33] MED LIST changes: +NICO21TP TOP; +SERT50 PO
== END 2019-01-06 19:04 | disposition home or self-care (01) ==
LOC: ER 17:33
DX: F41.0 Panic disorder [episodic paroxysmal anxiety] (principal); J44.9 Chronic obstructive pulmonary disease, unspecified; I10 Essential (primary) hypertension; F17.210 Nicotine dependence, cigarettes, uncomplicated; Z99.81 Dependence on supplemental oxygen
CPT/HCPCS: 99283; J2060

== ENCOUNTER 2019-01-18 17:22 | Emergency (ER) | payer MEDICARE, OTHER ==
[~2019-01-18] VITALS: Ht 165.1 cm; Wt 37.2 kg
[2019-01-18 17:56] LABS: BASOPHILS ABSOLUTE AUTO 0.01 K/mm3 (0.00-0.23); BASOPHILS PERCENT AUTO 0 % (0-2); EOSINOPHILS ABSOLUTE AUTO 0.01 K/mm3 (0.00-0.68); EOSINOPHILS PERCENT AUTO 0 % (0-6); Hematocrit 39.6 % (37.0-53.0); Hemoglobin 13.1 g/dL (13.5-17.5); IMMATURE GRAN ABSOLUTE AUTO 0.06 K/mm3 (0.00-0.10); IMMATURE GRAN PERCENT AUTO 1 % (0-1); LYMPHOCYTES ABSOLUTE AUTO 0.54 K/mm3 (0.84-5.20); LYMPHOCYTES PERCENT AUTO 5 % (21-46); MONOCYTES ABSOLUTE AUTO 0.46 K/mm3 (0.16-1.47); MONOCYTES PERCENT AUTO 4 % (4-13); Mean Corpuscular HGB 33.3 pg (26.0-34.0); Mean Corpuscular HGB Conc 33.1 g/dL (31.5-36.5); Mean Corpuscular Volume 101 fL (80-100); NEUTROPHILS ABSOLUTE AUTO 9.63 K/mm3 (1.96-9.15); NEUTROPHILS PERCENT AUTO 90 % (41-73); Platelet Count 254 K/mm3 (150-400); RDW Coefficient Variation 12.8 % (11.7-14.2); RDW Standard Deviation 47.9 fL (35.1-46.3); Red Blood Cell Count 3.93 M/mm3 (4.30-5.90); White Blood Cell Count 10.71 K/mm3 (4.00-11.30)
[2019-01-18 18:27] LABS: Alanine Aminotransfer (ALT/SGP 23 U/L (12-78); Albumin, Blood 3.2 g/dL (3.4-5.0); Albumin/Globulin Ratio 1.1 (0.8-1.8); Alk Phos 56 U/L (50-136); Anion Gap 5 mmol/L (6-16); Aspartate Aminotrans (AST/SGOT 17 U/L (12-37); Bilirubin, Total 0.3 mg/dL (0.1-1.0); Blood Urea Nitrogen 13 mg/dL (8-24); Bun/Creatinine Ratio 22.6 (12.0-20.0); CO2, Blood 30 mmol/L (21-32); Calcium, Blood 8.6 mg/dL (8.5-10.1); Chloride, Blood 97 mmol/L (98-108); Creatinine, Blood 0.57 mg/dL (0.60-1.20); Glomerular Filtration Rate >60 (60-); Glucose, Blood 103 mg/dL (70-99); Sodium, Blood 132 mmol/L (136-145); Total Protein, Blood 6.2 g/dL (6.4-8.2); Troponin I <0.015 ng/mL (0.000-0.040)
== END 2019-01-18 20:39 | disposition home or self-care (01) ==
LOC: ER 17:22
PROVIDERS: Emergency Medicine
DX: I16.0 Hypertensive urgency (principal); J44.1 Chronic obstructive pulmonary disease with (acute) exacerbation; Z79.899 Other long term (current) drug therapy; Z79.52 Long term (current) use of systemic steroids; F17.200 Nicotine dependence, unspecified, uncomplicated
CPT/HCPCS: 36415; 71046; 80053; 84484; 85025; 93005; 93010; 94644; 99284-25

== ENCOUNTER 2019-01-24 21:13 | Emergency (ER) | payer MEDICARE, OTHER ==
[~2019-01-24] VITALS: Ht 165.1 cm; Wt 37.2 kg
[2019-01-24 21:47] LABS: BASOPHILS ABSOLUTE AUTO 0.02 K/mm3 (0.00-0.23); BASOPHILS PERCENT AUTO 0 % (0-2); EOSINOPHILS ABSOLUTE AUTO 0.03 K/mm3 (0.00-0.68); EOSINOPHILS PERCENT AUTO 0 % (0-6); Hematocrit 41.9 % (37.0-53.0); Hemoglobin 13.7 g/dL (13.5-17.5); IMMATURE GRAN ABSOLUTE AUTO 0.04 K/mm3 (0.00-0.10); IMMATURE GRAN PERCENT AUTO 0 % (0-1); LYMPHOCYTES ABSOLUTE AUTO 1.38 K/mm3 (0.84-5.20); LYMPHOCYTES PERCENT AUTO 14 % (21-46); MONOCYTES ABSOLUTE AUTO 0.64 K/mm3 (0.16-1.47); MONOCYTES PERCENT AUTO 7 % (4-13); Mean Corpuscular HGB 33.2 pg (26.0-34.0); Mean Corpuscular HGB Conc 32.7 g/dL (31.5-36.5); Mean Corpuscular Volume 102 fL (80-100); Mean Platelet Volume 8.2 fL (9.1-12.4); NEUTROPHILS ABSOLUTE AUTO 7.54 K/mm3 (1.96-9.15); NEUTROPHILS PERCENT AUTO 78 % (41-73); Platelet Count 291 K/mm3 (150-400); RDW Coefficient Variation 12.5 % (11.7-14.2); RDW Standard Deviation 47.1 fL (35.1-46.3); Red Blood Cell Count 4.13 M/mm3 (4.30-5.90); White Blood Cell Count 9.65 K/mm3 (4.00-11.30)
[2019-01-24 22:03] LABS: Alanine Aminotransfer (ALT/SGP 22 U/L (12-78); Albumin, Blood 3.3 g/dL (3.4-5.0); Albumin/Globulin Ratio 1.1 (0.8-1.8); Alk Phos 54 U/L (50-136); Anion Gap 7 mmol/L (6-16); Aspartate Aminotrans (AST/SGOT 17 U/L (12-37); Bilirubin, Total 0.3 mg/dL (0.1-1.0); Blood Urea Nitrogen 15 mg/dL (8-24); Bun/Creatinine Ratio 23.3 (12.0-20.0); CO2, Blood 32 mmol/L (21-32); Calcium, Blood 8.5 mg/dL (8.5-10.1); Chloride, Blood 94 mmol/L (98-108); Creatinine, Blood 0.65 mg/dL (0.60-1.20); Globulin, Blood 3.1 g/dL (2.2-4.0); Glomerular Filtration Rate >60 (60-); Glucose, Blood 81 mg/dL (70-99); Potassium, Blood 4.5 mmol/L (3.5-5.5); Sodium, Blood 133 mmol/L (136-145); Total Protein, Blood 6.4 g/dL (6.4-8.2)
[2019-01-25] MEDS ORDERED: Prinivil5 MG PO (01:56)
== END 2019-01-25 02:50 | disposition home or self-care (01) ==
LOC: ER 21:13
PROVIDERS: Emergency Medicine
DX: R51 Headache (principal); I10 Essential (primary) hypertension; J44.9 Chronic obstructive pulmonary disease, unspecified; M19.90 Unspecified osteoarthritis, unspecified site; Z79.899 Other long term (current) drug therapy; F17.210 Nicotine dependence, cigarettes, uncomplicated
CPT/HCPCS: 36415; 71046; 80053; 85025; 93005; 93010; 94640; 96374; 96375; 99284-25; J0360; J1885; J2060

== ENCOUNTER 2019-01-31 20:30 | Emergency (ER) | payer MEDICARE, OTHER ==
[~2019-01-31] VITALS: Ht 165.1 cm; Wt 37.2 kg
[~2019-01-31 20:30] MED LIST changes: +Prinivil5 MG PO
[2019-01-31] MEDS ORDERED: AMLO5 PO (20:36)
[2019-01-31] MEDS ORDERED: TRAZ50 PO (20:37)
[2019-01-31] MEDS ORDERED: BUDE6HFA INH (20:38)
[2019-01-31] MEDS ORDERED: Allegra-D 12 H1 EACH PO (20:38)
[2019-01-31] MEDS ORDERED: SPIRIVA RESPIMAT4 GM PO (20:40)
[2019-01-31 20:49] LABS: BASOPHILS ABSOLUTE AUTO 0.03 K/mm3 (0.00-0.23); BASOPHILS PERCENT AUTO 0 % (0-2); EOSINOPHILS ABSOLUTE AUTO 0.03 K/mm3 (0.00-0.68); EOSINOPHILS PERCENT AUTO 0 % (0-6); Hematocrit 43.3 % (37.0-53.0); Hemoglobin 14.1 g/dL (13.5-17.5); IMMATURE GRAN ABSOLUTE AUTO 0.04 K/mm3 (0.00-0.10); IMMATURE GRAN PERCENT AUTO 1 % (0-1); LYMPHOCYTES ABSOLUTE AUTO 1.22 K/mm3 (0.84-5.20); LYMPHOCYTES PERCENT AUTO 14 % (21-46); MONOCYTES ABSOLUTE AUTO 0.67 K/mm3 (0.16-1.47); MONOCYTES PERCENT AUTO 8 % (4-13); Mean Corpuscular HGB 32.7 pg (26.0-34.0); Mean Corpuscular HGB Conc 32.6 g/dL (31.5-36.5); Mean Corpuscular Volume 101 fL (80-100); Mean Platelet Volume 8.3 fL (9.1-12.4); NEUTROPHILS ABSOLUTE AUTO 6.55 K/mm3 (1.96-9.15); NEUTROPHILS PERCENT AUTO 77 % (41-73); Platelet Count 339 K/mm3 (150-400); RDW Coefficient Variation 12.5 % (11.7-14.2); Red Blood Cell Count 4.31 M/mm3 (4.30-5.90); White Blood Cell Count 8.54 K/mm3 (4.00-11.30)
[2019-01-31 21:10] LABS: Alanine Aminotransfer (ALT/SGP 22 U/L (12-78); Albumin, Blood 3.5 g/dL (3.4-5.0); Alk Phos 64 U/L (50-136); Anion Gap 6 mmol/L (6-16); Aspartate Aminotrans (AST/SGOT 20 U/L (12-37); Bilirubin, Total 0.4 mg/dL (0.1-1.0); Blood Urea Nitrogen 16 mg/dL (8-24); Bun/Creatinine Ratio 27.5 (12.0-20.0); CO2, Blood 31 mmol/L (21-32); Calcium, Blood 9.1 mg/dL (8.5-10.1); Chloride, Blood 91 mmol/L (98-108); Creatinine, Blood 0.58 mg/dL (0.60-1.20); Globulin, Blood 3.6 g/dL (2.2-4.0); Glomerular Filtration Rate >60 (60-); Glucose, Blood 82 mg/dL (70-99); Potassium, Blood 5.2 mmol/L (3.5-5.5); Sodium, Blood 128 mmol/L (136-145); Total Protein, Blood 7.1 g/dL (6.4-8.2)
== END 2019-01-31 22:55 | disposition home or self-care (01) ==
LOC: ER 20:30
PROVIDERS: Emergency Medicine
DX: J44.1 Chronic obstructive pulmonary disease with (acute) exacerbation (principal); J96.11 Chronic respiratory failure with hypoxia; I10 Essential (primary) hypertension; F17.200 Nicotine dependence, unspecified, uncomplicated; Z79.899 Other long term (current) drug therapy
CPT/HCPCS: 71046; 80053; 84484; 85025; 93005; 93010; 94640; 96361; 96374; 99284-25; J2930; J7030

== ENCOUNTER 2019-05-09 15:30 | Emergency (ER) | payer MEDICARE, SELFPAY ==
[~2019-05-09] VITALS: Ht 165.1 cm; Wt 37.2 kg
[~2019-05-09 15:30] MED LIST changes: -ALBU90OI INH; +Allegra-D 12 H1 EACH PO; +BUDE6HFA INH; -SERT50 PO; +SPIRIVA RESPIMAT4 GM PO
[2019-05-09] MEDS ORDERED: PRED20 PO (15:36)
[2019-05-09 16:13] LABS: BASOPHILS ABSOLUTE AUTO 0.02 K/mm3 (0.00-0.23); BASOPHILS PERCENT AUTO 0 % (0-2); EOSINOPHILS ABSOLUTE AUTO 0.01 K/mm3 (0.00-0.68); EOSINOPHILS PERCENT AUTO 0 % (0-6); Hematocrit 39.8 % (37.0-53.0); Hemoglobin 13.4 g/dL (13.5-17.5); IMMATURE GRAN ABSOLUTE AUTO 0.03 K/mm3 (0.00-0.10); IMMATURE GRAN PERCENT AUTO 0 % (0-1); LYMPHOCYTES ABSOLUTE AUTO 0.59 K/mm3 (0.84-5.20); LYMPHOCYTES PERCENT AUTO 8 % (21-46); MONOCYTES ABSOLUTE AUTO 0.26 K/mm3 (0.16-1.47); MONOCYTES PERCENT AUTO 4 % (4-13); Mean Corpuscular HGB 34.7 pg (26.0-34.0); Mean Corpuscular HGB Conc 33.7 g/dL (31.5-36.5); Mean Corpuscular Volume 103 fL (80-100); Mean Platelet Volume 8.7 fL (9.1-12.4); NEUTROPHILS ABSOLUTE AUTO 6.25 K/mm3 (1.96-9.15); NEUTROPHILS PERCENT AUTO 87 % (41-73); Platelet Count 252 K/mm3 (150-400); RDW Coefficient Variation 13.2 % (11.7-14.2); RDW Standard Deviation 50.4 fL (35.1-46.3); Red Blood Cell Count 3.86 M/mm3 (4.30-5.90); White Blood Cell Count 7.16 K/mm3 (4.00-11.30)
[2019-05-09 16:32] LABS: Alanine Aminotransfer (ALT/SGP 19 U/L (12-78); Albumin, Blood 3.7 g/dL (3.4-5.0); Albumin/Globulin Ratio 1.2 (0.8-1.8); Alk Phos 48 U/L (50-136); Anion Gap 9 mmol/L (6-16); Aspartate Aminotrans (AST/SGOT 13 U/L (12-37); Bilirubin, Total 0.3 mg/dL (0.1-1.0); Blood Urea Nitrogen 11 mg/dL (8-24); Bun/Creatinine Ratio 19.3 (12.0-20.0); CO2, Blood 28 mmol/L (21-32); Calcium, Blood 8.7 mg/dL (8.5-10.1); Chloride, Blood 89 mmol/L (98-108); Creatinine, Blood 0.57 mg/dL (0.60-1.20); Glomerular Filtration Rate >60 (60-); Glucose, Blood 96 mg/dL (70-99); Potassium, Blood 4.4 mmol/L (3.5-5.5); Sodium, Blood 126 mmol/L (136-145); Total Protein, Blood 6.7 g/dL (6.4-8.2); Troponin I <0.015 ng/mL (0.000-0.040)
[2019-05-09 16:49] LABS: Base Excess Venous 4.5 mmol/L; Bicarbonate Venous 27.9 mmol/L (24.0-30.0); PCO2 Venous 45.1 mmHg (38-42); PO2 Venous 155 mmHg (38-42); pH Blood Venous 7.42 (7.34-7.37)
== END 2019-05-09 18:42 | disposition home or self-care (01) ==
LOC: ER 15:30
PROVIDERS: Emergency Medicine
DX: J44.9 Chronic obstructive pulmonary disease, unspecified (principal); E87.2 Acidosis; I10 Essential (primary) hypertension; E46 Unspecified protein-calorie malnutrition; Z68.1 Body mass index [BMI] 19.9 or less, adult; F17.200 Nicotine dependence, unspecified, uncomplicated
CPT/HCPCS: 71046; 80053; 82803; 83880; 84484; 85025; 93005; 93010; 94640; 94664; 96361; 96365; 96375; 99284-25; J2930; J3475; J7030

== ENCOUNTER 2019-05-18 12:07 | Emergency (ER) | payer MEDICARE, OTHER ==
[~2019-05-18] VITALS: Ht 165.1 cm; Wt 36.3 kg
[2019-05-18 12:49] LABS: BASOPHILS ABSOLUTE AUTO 0.02 K/mm3 (0.00-0.23); BASOPHILS PERCENT AUTO 0 % (0-2); EOSINOPHILS ABSOLUTE AUTO 0.02 K/mm3 (0.00-0.68); EOSINOPHILS PERCENT AUTO 0 % (0-6); Hematocrit 39.1 % (37.0-53.0); Hemoglobin 12.9 g/dL (13.5-17.5); IMMATURE GRAN ABSOLUTE AUTO 0.04 K/mm3 (0.00-0.10); IMMATURE GRAN PERCENT AUTO 1 % (0-1); LYMPHOCYTES ABSOLUTE AUTO 0.62 K/mm3 (0.84-5.20); LYMPHOCYTES PERCENT AUTO 7 % (21-46); MONOCYTES ABSOLUTE AUTO 0.35 K/mm3 (0.16-1.47); MONOCYTES PERCENT AUTO 4 % (4-13); Mean Corpuscular HGB 33.6 pg (26.0-34.0); Mean Corpuscular Volume 102 fL (80-100); Mean Platelet Volume 8.5 fL (9.1-12.4); NEUTROPHILS ABSOLUTE AUTO 7.33 K/mm3 (1.96-9.15); NEUTROPHILS PERCENT AUTO 88 % (41-73); Platelet Count 286 K/mm3 (150-400); RDW Coefficient Variation 13.2 % (11.7-14.2); RDW Standard Deviation 49.1 fL (35.1-46.3); Red Blood Cell Count 3.84 M/mm3 (4.30-5.90); White Blood Cell Count 8.38 K/mm3 (4.00-11.30)
[2019-05-18 13:03] LABS: Troponin I <0.015 ng/mL (0.000-0.040)
[2019-05-18 13:04] LABS: Alanine Aminotransfer (ALT/SGP 20 U/L (12-78); Albumin, Blood 3.5 g/dL (3.4-5.0); Albumin/Globulin Ratio 1.2 (0.8-1.8); Alk Phos 47 U/L (50-136); Anion Gap 7 mmol/L (6-16); Aspartate Aminotrans (AST/SGOT 12 U/L (12-37); Bilirubin, Total 0.3 mg/dL (0.1-1.0); Blood Urea Nitrogen 10 mg/dL (8-24); Bun/Creatinine Ratio 16.3 (12.0-20.0); CO2, Blood 32 mmol/L (21-32); Calcium, Blood 8.7 mg/dL (8.5-10.1); Chloride, Blood 92 mmol/L (98-108); Creatinine, Blood 0.61 mg/dL (0.60-1.20); Glomerular Filtration Rate >60 (60-); Glucose, Blood 89 mg/dL (70-99); Potassium, Blood 4.2 mmol/L (3.5-5.5); Sodium, Blood 131 mmol/L (136-145); Total Protein, Blood 6.5 g/dL (6.4-8.2)
== END 2019-05-18 14:21 | disposition home or self-care (01) ==
LOC: ER 12:07
PROVIDERS: Internal Medicine
DX: J44.1 Chronic obstructive pulmonary disease with (acute) exacerbation (principal); I10 Essential (primary) hypertension; F17.200 Nicotine dependence, unspecified, uncomplicated; Z79.899 Other long term (current) drug therapy; Z79.52 Long term (current) use of systemic steroids
CPT/HCPCS: 36415; 71046; 80053; 84484; 85025; 93005; 93010; 99285-25

== ENCOUNTER 2019-06-01 10:38 | Inpatient (IN) | payer MEDICARE, OTHER ==
[~2019-06-01] VITALS: Ht 152.4 cm; Wt 35.0 kg
[2019-06-01 11:18] LABS: BASOPHILS ABSOLUTE AUTO 0.04 K/mm3 (0.00-0.23); BASOPHILS PERCENT AUTO 1 % (0-2); EOSINOPHILS ABSOLUTE AUTO 0.07 K/mm3 (0.00-0.68); EOSINOPHILS PERCENT AUTO 1 % (0-6); Hematocrit 37.1 % (37.0-53.0); Hemoglobin 12.4 g/dL (13.5-17.5); IMMATURE GRAN ABSOLUTE AUTO 0.07 K/mm3 (0.00-0.10); IMMATURE GRAN PERCENT AUTO 1 % (0-1); LYMPHOCYTES ABSOLUTE AUTO 0.85 K/mm3 (0.84-5.20); LYMPHOCYTES PERCENT AUTO 10 % (21-46); MONOCYTES ABSOLUTE AUTO 0.53 K/mm3 (0.16-1.47); MONOCYTES PERCENT AUTO 6 % (4-13); Mean Corpuscular HGB 33.9 pg (26.0-34.0); Mean Corpuscular HGB Conc 33.4 g/dL (31.5-36.5); Mean Corpuscular Volume 101 fL (80-100); Mean Platelet Volume 8.4 fL (9.1-12.4); NEUTROPHILS ABSOLUTE AUTO 7.12 K/mm3 (1.96-9.15); NEUTROPHILS PERCENT AUTO 82 % (41-73); Platelet Count 263 K/mm3 (150-400); RDW Coefficient Variation 12.6 % (11.7-14.2); RDW Standard Deviation 47.5 fL (35.1-46.3); Red Blood Cell Count 3.66 M/mm3 (4.30-5.90); White Blood Cell Count 8.68 K/mm3 (4.00-11.30)
[2019-06-01 11:29] LABS: Alanine Aminotransfer (ALT/SGP 20 U/L (12-78); Albumin, Blood 3.4 g/dL (3.4-5.0); Albumin/Globulin Ratio 1.3 (0.8-1.8); Alk Phos 43 U/L (50-136); Anion Gap 5 mmol/L (6-16); Aspartate Aminotrans (AST/SGOT 14 U/L (12-37); Bilirubin, Total 0.4 mg/dL (0.1-1.0); Blood Urea Nitrogen 14 mg/dL (8-24); Bun/Creatinine Ratio 23.5 (12.0-20.0); CO2, Blood 31 mmol/L (21-32); Calcium, Blood 8.6 mg/dL (8.5-10.1); Chloride, Blood 94 mmol/L (98-108); Globulin, Blood 2.7 g/dL (2.2-4.0); Glomerular Filtration Rate >60 (60-); Glucose, Blood 110 mg/dL (70-99); Potassium, Blood 4.3 mmol/L (3.5-5.5); Sodium, Blood 130 mmol/L (136-145); Total Protein, Blood 6.1 g/dL (6.4-8.2)
[2019-06-01] MEDS ORDERED: ACET325 PO (13:53)
--- NOTE | 2019-06-01 17:57 | NUR ---
SHIFT SUMMARY PATIENT TO THE FLOOR IN THE 1500 HOUR. HE IS PLEASANT, ALERT AND ORIENTED, NO ACUTE CONCERNS AT THIS TIME PER THE PATIENT. HE IS BREATHING LABORED, AND DENIES ANY CHEST PAIN OR OTHER CONCERNS. HE STATES THIS HAPPENS OFTEN.
[2019-06-02 04:30] LABS: Base Excess Venous 3.2 mmol/L; Bicarbonate Venous 26.6 mmol/L (24.0-30.0); PCO2 Venous 44.4 mmHg (38-42); PO2 Venous 58.3 mmHg (38-42); pH Blood Venous 7.41 (7.34-7.37)
[2019-06-02 04:48] LABS: BASOPHILS PERCENT AUTO 0 % (0-2); EOSINOPHILS PERCENT AUTO 0 % (0-6); Hematocrit 38.5 % (37.0-53.0); Hemoglobin 12.9 g/dL (13.5-17.5); IMMATURE GRAN ABSOLUTE AUTO 0.02 K/mm3 (0.00-0.10); IMMATURE GRAN PERCENT AUTO 0 % (0-1); LYMPHOCYTES ABSOLUTE AUTO 0.32 K/mm3 (0.84-5.20); LYMPHOCYTES PERCENT AUTO 7 % (21-46); MONOCYTES ABSOLUTE AUTO 0.17 K/mm3 (0.16-1.47); MONOCYTES PERCENT AUTO 4 % (4-13); Mean Corpuscular HGB 34.1 pg (26.0-34.0); Mean Corpuscular HGB Conc 33.5 g/dL (31.5-36.5); Mean Corpuscular Volume 102 fL (80-100); Mean Platelet Volume 8.2 fL (9.1-12.4); NEUTROPHILS ABSOLUTE AUTO 4.06 K/mm3 (1.96-9.15); NEUTROPHILS PERCENT AUTO 89 % (41-73); Platelet Count 273 K/mm3 (150-400); RDW Coefficient Variation 12.2 % (11.7-14.2); RDW Standard Deviation 46.1 fL (35.1-46.3); Red Blood Cell Count 3.78 M/mm3 (4.30-5.90); White Blood Cell Count 4.57 K/mm3 (4.00-11.30)
--- NOTE | 2019-06-02 04:53 | NUR ---
SHIFT SUMMARY PT A&OX4, 1 PER ASSIST IN RM. ON 2L VIA NC, BASELINE O2. CONT PULSE OX SHOWS O2 SATS WNL, EVEN DURING EPISODES OF LABORED/DYSPNEIC BREATHING. LS DIM WHEEZE T/O, NEBS PER RT. SOLU MEDROL ADMINISTERED PER EMAR ORDERS. PT IS EXTREMELY THIN AND FRAIL, WEIGHS ROUGHLY 100 LBS, DIETARY CONSULT IS ORDERED. PT OFFERED SNACKS AND BEVERAGES OFTEN. PT REQUESTS BP MEDS HE TAKES AT HOME, CLONIDINE AND LISINOPRIL. CALL PLACED TO [facility], WHO DECLINES TO ORDER HOME MEDS AND DEFERS TO ATTENDING PHYSICIAN. WILL PASS ON IN REPORT. ADMINISTERD 1MG PO DILAUDID FOR AIR HUNGER, PROVIDES RELIEF. WILL CONT TO MONITOR AND PROVIDE CARE UNTIL PRESUMED BY ONCOMING RN.
[2019-06-02 05:11] LABS: Anion Gap 7 mmol/L (6-16); Blood Urea Nitrogen 16 mg/dL (8-24); Bun/Creatinine Ratio 30.4 (12.0-20.0); CO2, Blood 26 mmol/L (21-32); Calcium, Blood 8.9 mg/dL (8.5-10.1); Chloride, Blood 100 mmol/L (98-108); Creatinine, Blood 0.53 mg/dL (0.60-1.20); Glomerular Filtration Rate >60 (60-); Glucose, Blood 114 mg/dL (70-99); Potassium, Blood 4.4 mmol/L (3.5-5.5); Sodium, Blood 133 mmol/L (136-145)
--- NOTE | 2019-06-02 07:29 | NUR ---
ELEVATED BP PT BP ELEVATED AT [address] JACINTO CALLED & INFORMED. PT STATES HE NORMALLY GETS CLONIDINE TID & LISINOPRIL DAILY. DR. JACINTO ORDERED HOME MED DOSES FOR PT. WILL CONTINUE TO MONITOR.
--- NOTE | 2019-06-02 16:43 | NUR ---
SHIFT SUMMARY NO CHANGES IN ASSESSMENT AT THIS TIME. VSS. PT RESTING IN BED. POOR APPETITE. SNACKS PROVIDED WHEN REQUESTED. PT DENIES NEEDS AT THIS TIME. ONE DOSE OF DILADID GIVEN THIS AM TO HELP WITH AIR HUNGER. WILL CONTINUE TO MONITOR UNTIL TURNOVER IS COMPLETE.
--- NOTE | 2019-06-03 04:22 | NUR ---
SHIFT SUMMARY PT HAD NO ISSUES. PT SLEPT AFTER NIGHT TIME MEDS. PT CURRENTLY SLEEPING AND BREATHING EASY. CALL LIGHT IN REACH.
[2019-06-03] MEDS ORDERED: BUDE.25 NEB (11:40)
[2019-06-03] MEDS ORDERED: ALBU3IS (11:41)
--- NOTE | 2019-06-03 11:56 | NUR ---
Initial Visit: Palliative Care Consult for Advanced Care Planning. Pt is A&O and denies pain at this time. Pt reports 2/7 dyspnea at rest that worsens with exertion. He reports ability to ambulate approximatelyu 10 feet before SOB worsens. Pt denies nausea at this time. He reports intermittent mild depression due to his quality of life. Engaged in therapeutic discussion regarding Advanced Care Planning. Pt reports living at home with his who has medical issues of her own. He reports granddaughter assists with some of his and 's needs. Pt reports ability to dress himself but takes a while to complete due to dyspnea. He also reports ability to bathe himself but requires the use of transfer bench. Pt reports inability to cook for himself and has difficulty making his PCP appointments due to transportation issues. His granddaughter was taking him but recently had her drivers license revoked. He reports more difficulty with his ADLs and has significant decrease in his appetite. Discussed in home caregivers and Pt expresses interest in the Medicaid process. Instructed Pt that information will be passed to childcare directormanager Marsh. Educated Pt on disease process and discussed hospice as an option. Pt reports having conversation with family and is leaning towards this option but is not quite ready yet. Pt reports no other concerns at this time. Spoke with bedside nurse Ashleigh and discussed case. Ashleigh reports concerns regarding transportation issues as well. Left message with childcare director Salma regarding concerns. Palliative Care will remain available.
--- NOTE | 2019-06-03 14:09 | NUR ---
PT DISCHARGED. PT DISCHARGED AT 1330. PT IN STABLE CONDITION WITH VSS. PT EDUCATED ON DC INSTRUCTIONS & DENIED FURTHER NEED FOR INSTRUCTION. NEW MEDS FAXED TO [facility]. IV REMOVED & INTACT.
== END 2019-06-03 13:30 | disposition home or self-care (01) | DRG 189 ==
LOC: ER 10:38 → MEDS 14:07 → ENPENDDIS 06-03 11:16 → MEDS 06-03 13:30
PROVIDERS: Emergency Medicine; ADMIT Internal Medicine
DX: J96.21 Acute and chronic respiratory failure with hypoxia (principal); E43 Unspecified severe protein-calorie malnutrition; E87.1 Hypo-osmolality and hyponatremia; Z68.1 Body mass index [BMI] 19.9 or less, adult; J44.1 Chronic obstructive pulmonary disease with (acute) exacerbation; J96.22 Acute and chronic respiratory failure with hypercapnia; J44.9 Chronic obstructive pulmonary disease, unspecified; F17.210 Nicotine dependence, cigarettes, uncomplicated; Z99.81 Dependence on supplemental oxygen; F41.9 Anxiety disorder, unspecified; D63.8 Anemia in other chronic diseases classified elsewhere; I10 Essential (primary) hypertension; Z66 Do not resuscitate
CPT/HCPCS: 36415; 71045; 80048; 80053; 82803; 84145; 84484; 85025; 90670; 93005; 93010; 94640; 94644; 94664; 94760; 94762; 96374; 98960; 99285-25; 99407; A9270; J2920; J2930; J7030; J7512

== ENCOUNTER 2019-06-23 08:32 | Inpatient (IN) | payer MEDICARE, OTHER ==
[~2019-06-23] VITALS: Ht 165.1 cm; Wt 34.8 kg
[~2019-06-23 08:32] MED LIST changes: +ACET325 PO; +ALBU3IS
[2019-06-23 09:18] LABS: BASOPHILS ABSOLUTE AUTO 0.01 K/mm3 (0.00-0.23); BASOPHILS PERCENT AUTO 0 % (0-2); EOSINOPHILS ABSOLUTE AUTO 0.01 K/mm3 (0.00-0.68); EOSINOPHILS PERCENT AUTO 0 % (0-6); Hematocrit 40.2 % (37.0-53.0); Hemoglobin 13.3 g/dL (13.5-17.5); IMMATURE GRAN ABSOLUTE AUTO 0.02 K/mm3 (0.00-0.10); IMMATURE GRAN PERCENT AUTO 0 % (0-1); LYMPHOCYTES ABSOLUTE AUTO 0.27 K/mm3 (0.84-5.20); LYMPHOCYTES PERCENT AUTO 4 % (21-46); MONOCYTES ABSOLUTE AUTO 0.38 K/mm3 (0.16-1.47); MONOCYTES PERCENT AUTO 5 % (4-13); Mean Corpuscular HGB 34.8 pg (26.0-34.0); Mean Corpuscular HGB Conc 33.1 g/dL (31.5-36.5); Mean Corpuscular Volume 105 fL (80-100); Mean Platelet Volume 8.5 fL (9.1-12.4); NEUTROPHILS ABSOLUTE AUTO 6.57 K/mm3 (1.96-9.15); NEUTROPHILS PERCENT AUTO 91 % (41-73); Platelet Count 252 K/mm3 (150-400); RDW Coefficient Variation 12.9 % (11.7-14.2); RDW Standard Deviation 49.7 fL (35.1-46.3); Red Blood Cell Count 3.82 M/mm3 (4.30-5.90); White Blood Cell Count 7.26 K/mm3 (4.00-11.30)
[2019-06-23 09:49] LABS: Alanine Aminotransfer (ALT/SGP 20 U/L (12-78); Albumin, Blood 3.2 g/dL (3.4-5.0); Albumin/Globulin Ratio 0.8 (0.8-1.8); Alk Phos 51 U/L (50-136); Anion Gap 4 mmol/L (6-16); Aspartate Aminotrans (AST/SGOT 18 U/L (12-37); Bilirubin, Total 0.7 mg/dL (0.1-1.0); Blood Urea Nitrogen 13 mg/dL (8-24); Bun/Creatinine Ratio 23.6 (12.0-20.0); CO2, Blood 30 mmol/L (21-32); Calcium, Blood 9.1 mg/dL (8.5-10.1); Chloride, Blood 92 mmol/L (98-108); Creatinine, Blood 0.55 mg/dL (0.60-1.20); Globulin, Blood 3.8 g/dL (2.2-4.0); Glomerular Filtration Rate >60 (60-); Glucose, Blood 91 mg/dL (70-99); Potassium, Blood 4.2 mmol/L (3.5-5.5); Sodium, Blood 126 mmol/L (136-145); Troponin I <0.015 ng/mL (0.000-0.040)
[2019-06-23] MEDS ORDERED: SPIRIVA RESPIMAT4 GM INH (12:11)
[2019-06-23] MEDS ORDERED: CLON.1 PO (12:12)
[2019-06-23] MEDS ORDERED: TRAZ50 PO (12:12)
[2019-06-23] MEDS ORDERED: SERT50 PO (12:12)
[2019-06-23] MEDS ORDERED: OMEPRAZOLE20 MG PO (12:12)
[2019-06-23] MEDS ORDERED: LISI5 PO (12:13)
[2019-06-23] MEDS ORDERED: ALBU90OI INH (12:14)
[2019-06-23] MEDS ORDERED: BUDE6HFA INH (12:14)
[2019-06-23] MEDS ORDERED: PRED20 PO (12:15)
--- NOTE | 2019-06-23 16:00 | NUR ---
PT ADMITTED TO ROOM 362 VIA GURNEY FROM ED. ABLE TO TRANSFER SELF WITH GUIDANCE TO BED. EASILY WINDED WITH ANY ACTIVITY. REPORTS HE BARELY EATS TO SURVIVE DUE TO RESP DISTRESS WITH ANY ACTIVITY. EGG CRATE PLACED ON BED FOR COMFORT DUE TO MALNURISHED STATE.
[2019-06-23] MEDS ORDERED: GUAI600T33 PO (16:53)
[2019-06-23] MEDS ORDERED: ACET120S PO (16:53)
[2019-06-23] MEDS ORDERED: Flonase 0.05% N16 GM (16:54)
[2019-06-23] MEDS ORDERED: ALBU2.5V5 INH (16:56)
--- NOTE | 2019-06-23 18:46 | NUR ---
SHIFT SUMMARY CODE STATUS CHANGED PER PT REQUEST. UP TO BSC INDEPENDENTLY. O2 AT 2L/M. CONTINUES TO BE EASILY WINDED WITH ANY ACTIVITY. STATES HE DOESN'T FEEL ANY BETTER THAN WHEN HE FIRST ARRIVED TO ED. FAMILY AT BEDSIDE FOR SHORT TIME. IV ANTIBIOTIC INFUSING.
--- NOTE | 2019-06-24 04:40 | NUR ---
SHIFT SUMMARY: 68 Y/O MALE RESTED COMFORTABLY ALL SHIFT, INCREASED DYSPNEA WITH SLIGHT ACTIVITY NOTED WHICH RESOLVES WITH REST, WEARING O2 AT 2L/M PER NASAL CANNULA, DENIES PAIN OR NAUSEA, BED LOW POSITION, CALL LIGHT AT SIDE.
--- NOTE | 2019-06-24 18:26 | NUR ---
SHIFT SUMMARY PT INDEPENDENT TO BSC. REPORTS VERY SHORT OF BREATH WHEN TRANSFERRING TO COMMODE AND TAKES SEVERAL MINUTES TO RECOVER. SPONGE BATH TAKEN AND STATED IT MADE HIM FEEL SO MUCH BETTER.
--- NOTE | 2019-06-25 04:50 | NUR ---
SHIFT SUMMARY: 68 Y/O SLENDER MALE RESTED COMFORTABLY IN BED ALL SHIFT, INCREASED DYSPNEA NOTED WITH SLIGHT ACTIVITY WHICH RESOLVES WITH EXTENDED REST, LUNG SOUNDS ARE DIMINISHED THROUGHOUT, DENIES NEED FOR NICOTINE PATCH, DENIES PAIN OR NAUSEA, BED ALARM APPLIED, BED LOW POSITION, CALL LIGHT AT SIDE.
[2019-06-25 05:16] LABS: Anion Gap 3 mmol/L (6-16); Blood Urea Nitrogen 16 mg/dL (8-24); Bun/Creatinine Ratio 24.1 (12.0-20.0); CO2, Blood 33 mmol/L (21-32); Chloride, Blood 97 mmol/L (98-108); Creatinine, Blood 0.66 mg/dL (0.60-1.20); Glomerular Filtration Rate >60 (60-); Glucose, Blood 85 mg/dL (70-99); Potassium, Blood 4.4 mmol/L (3.5-5.5); Sodium, Blood 133 mmol/L (136-145)
[2019-06-25 14:54] LABS: Vancomycin, Trough 2.7 ug/mL (5.0-10.0)
--- NOTE | 2019-06-25 18:11 | NUR ---
SHIFT SUMMARY PT AXO, PLEASANT AND COOPERATIVE WITH CARE. PT DENIES PAIN AND NV. SOB WITH MINIMAL EXERTION AND SOME TIMES AT REST. PT CONTINUES TO COUGH AT TIMES, STATES HE CANNOT GET UP PHLEM THOUGH HE FEELS LIKE SOME IS CLOSE TO COMING OUT. VSS THOUGH BP ELEVATED WITH AFTERNOON VITALS, SEE VITALS. PT MEDICATED PER EMAR. BED IN LOW POSITION, CALL LIGHT WITHIN REACH. PT UP TO BSC TO VOID. PT STATES HE HAD A BIG BM YESTERDAY.
--- NOTE | 2019-06-26 04:43 | NUR ---
SHIFT SUMMARY: 68 Y/O MALE RESTED COMFORTABLY ALL SHIFT, LUNG SOUNDS ARE DIMINISHED THROUGHOUT WITH INCREASED DYSPNEA NOTED WITH VERY SLIGHT ACTIVITY WHICH RESOLVES WITH REST, DENIES PAIN OR NAUSEA, HAPPY AND COOPERATIVE, BED LOW POSITION, CALL LIGHT AT SIDE, WEARING O2 AT 2L/M PER NASAL CANNULA.
--- NOTE | 2019-06-26 16:52 | NUR ---
SHIFT SUMMARY PT AXO, PLEASANT AND COOPERATIVE WITH CARE. 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 PT PLACED IN DROPLET ISO. PT EDUCATED ON INDICATION FOR ISOLATION, HE AGREES. PT COMPLAINED OF DAVID, MEDICATED PER EMAR. ICE PACK ALSO PROVIDED. PT CONTINUES TO BE SOB WITH MINIMAL EXERTION. ON 2L VIA NC AT 98%. PT REFUSED SHOWER. LOTION APPLIED TO FEET BILATERALLY THEN SOCKS APPLIED. IV PATENT AND INFUSING PER EMAR. NO OTHER CHANGES THIS SHIFT. BED IN LOW POSITION, CALL LIGHT WITHIN REACH.
--- NOTE | 2019-06-26 18:54 | NUR ---
Spiritual Care inital note: Mr. Villagran is non-anabaptist, but was welcoming of convrsation and funeral planning counselor. On one hand, he tells me he knows he is nearing end-of-life. On the other, he states he wants to watch his great grandchildren grow up. His has dementia and multiple health issues. He has been trying to care for her at home with the help of their grand dtr who is a paid care-special order jeweler. Mr. Villagran is very worried about what will happen to his after he dies. I made suggestions about the peace that would come from making plans for the things he's worried about. He agreed this was a good idea and says he will speak to his son this weekend and geting things in writting. He asked for information about whole-body donation after . Provided brochure. Mr. Villagran was tearful at times and seemed to benefit from the safety of talking to a caring stranger. Provided theraputic listening and gentle funeral planning counselor to good effect. [employer] will remain available.
--- NOTE | 2019-06-27 04:43 | NUR ---
SHIFT SUMMARY: 68 Y/O MALE RESTED COMFORTABLY ALL SHIFT, TELEMETRY REFLECTS NSR, DENIES PAIN OR NAUSEA, WEARING O2 AT 2L/M PER NASAL CANNULA, CONTACT ISOLATION MAINTAINED, BED LOW POSITION WITH CALL LIGHT AT SIDE.
[2019-06-27 06:46] LABS: Vancomycin, Trough 12.7 ug/mL (5.0-10.0)
--- NOTE | 2019-06-27 08:35 | NUR ---
PT VERY PLEASANT COOP TALKATIVE. SOME PAIN H/ACHE. ICE PACK PROVIDED. TYLENOL PER EMAR. STATES CAN AMBULATE TO BSC BUT SOB WITH ANY EXERTION. H/R REG, NO MURMER NOTED. PER TELE NSR AT 71. LUNGS COARSE WHEEZY T/O. PT USING ACC MUSCLES TO BREATHE. SHALLOW BREATHS. PT STATES THIS PRETTY NORMAL FOR HIS BASELINE. NOTICED FINGERS YELLOWED. ADMITS TO SMOKING. DENIES SMOKING WITH OXYGEN. BT X4 LAST BM YEST. MAYBE 2 DAYS. STATES IS NORMAL FOR HIM. REFUSES PRUNE JUICE. WILL SEE DR ABOUT COLACE. VOIDS PER BSC. INDEPENDANT IN ROOM. BED IN LOW POSITION, CALL LITE IN REACH, CALLS APPROP
--- NOTE | 2019-06-27 18:03 | NUR ---
PT PLEASANT TODAY. HAS BEEN TO BSC WITH OUT ASST. STATES DOES GET SOB BUT RECOVERS. NO OTHER CONCERNS AT THIS TIME . BED IN LOW POSITION, CALL LITE IN REACH, CALLS APPROP. DOES NOT HEAR IV PUMP BEEPING. FAMILY IN ROOM MUCH OF DAY.
--- NOTE | 2019-06-28 06:35 | NUR ---
SHIFT SUMMARY AOX4. LS COARSE, SOB AT REST, USE OF ACCESSORY MUSCLES. 2L O2 VIA NC, HOME OXYGEN NEEDS. DENIED NAUSEA AND PAIN AT TIME OF ASSESSMENT. TYLENOL GIVEN FOR HEADACHE @ 2140 AND AGAIN THIS AM AROUND 0615. TELE READS SR IN THE 70'S. VSS ON 2L. UNSURE OF DC PLAN AT THIS TIME.
--- NOTE | 2019-06-28 08:00 | NUR ---
pt is quite pleasant coop a/o. states some pain in back , mostly gone. took pain pill recently. h/r reg, no murmer noted. per tele nsr at 73. lungs coarse t/o. resp shallow. no accessory muscles used at this time. sob with exertion. on 2l o2. bt x4 last bm 3 days. started on colace last nite. voids bsc independant in room. bed in low position, call lite in reach, calls approp
--- NOTE | 2019-06-28 11:56 | NUR ---
DR ZARATE ORDERED 7% HYPERTONIC [id number] WITH BREATHING TX. ALSO CPT WITH VEST TOLERATED
--- NOTE | 2019-06-28 18:29 | NUR ---
PT VERY PLEASANT TODAY. PAIN MANAGED WITH AVAIL MEDS. BP MANAGED WITH AVAIL MEDS. LUNGS REMAIN COARSE. DR STARTED ON ADDITIONAL CPT AND 7% SALINE INHALE TERAPY. PT MANAGING. PT HAD BM TODAY. NO OTHER CONCERNS AT THIS TIME. BED IN LOW POSITION ,CALL LITE IN REACH, CALLS APPROP
[2019-06-28 22:23] LABS: Vancomycin, Trough 19.1 ug/mL (5.0-10.0)
--- NOTE | 2019-06-29 05:27 | NUR ---
SHIFT SUMMARY AOX4. LS DIMINISHED. DENIES SOB. NO C/O PAIN OR NAUSEA. 3L O2 VIA NC, WEARS 2L AT HOME. PT IS UP INDEPENDENTLY TO BSC. VSS. TYLENOL GIVEN @ 2044. UNSURE OF DC PLAN AT THIS TIME.
--- NOTE | 2019-06-29 17:13 | NUR ---
SHIFT SUMMARY: PT IS A/O X 4 AND VERY PLEASANT AND COOPERATIVE WITH HIS CARE. PT CONTINUES TO WORK WITH RT FOR HIS REPSIRATORY TX. PT HAS HAD FAMILY AT THE BEDSIDE MOST OF THE DAY. PT C/O PAIN FROM COUGHING X 1 TODAY AND REPORTED THAT THE TYLEONL WAS EFFECTIVE DR MACKENZIE WROTE ORDERS FOR TRAMADOL IN CASE THE TYLEONL WAS NOT ENOUGH. IV FLUIDS AND ABO INFUSED WITH NO ISSUES. PT IS ABLE TO MAKE HIS NEEDS KNOWN AND CALLS FOR HELP WHEN NEEDED.
--- NOTE | 2019-06-30 06:22 | NUR ---
SHIFT SUMMARY NO ASSESMENT CHANGES. SEBASTIEN @ 9. VSS ON 2l O2. REFUSED STOOL SOFTENER. PLAN TO DC TODAY OR TOMORROW.
[2019-06-30 09:46] LABS: Creatinine, Blood 0.47 mg/dL (0.60-1.20); Vancomycin, Trough 18.3 ug/mL (5.0-10.0)
--- NOTE | 2019-06-30 17:25 | NUR ---
SHIFT SUMMARY: PT IS A/O X 4 AT BASELINE AND VERY PLEASANT AND COOPERATIVE WITH HIS CARE. PT C/O PAIN TODAY AND REPORTED THAT THE PAIN MEDS WERE EFFECTIVE. DR ZARATE REPORTS THAT HE SHOULD BE READY FOR DC TOMORROW. PT REPORTED THAT HIS BREATHING TX ARE MAKING HIM FEEL "JITTERY" AND "NOT GOOD" THIS WAS REPORTED TO RT. PT HAS A GOOD APPETITE AND USES THE BEDSIDE COMMODE FOR TOILETING. PT USES CALL LIGHT FOR HELP WHEN NEEDED.
--- NOTE | 2019-07-01 07:58 | NUR ---
07/01/19 0600 VITALS STABLE. SLEPT WELL AFTER PM MEDS GIVEN. UP TO BSC PER SELF FOR VOIDINGS. O2 AT 2LPM VIA N/C. UNEVENTFUL NIGHT.
[2019-07-01] MEDS ORDERED: Nicoderm Cq1 EAC1 TOP (15:48)
[2019-07-01] MEDS ORDERED: BUDE.25 NEB (15:48)
--- NOTE | 2019-07-01 17:24 | NUR ---
DISCHARGE AT 1648 PATIENT DISCHARGED HOME WITH RIDE FROM SON. DISCHARGE/HOSPICE LIASON TALKED WITH PATIENT AND INFORMED THEM HOSPICE WILL BE GETTING SET UP WITH THEM ON SUNDAY. IV REMOVED. DISCHARGE PACKET GIVEN TO PATIENT, MEDS EXPLAINED. PATIENT SIGNED DC FORM.
== END 2019-07-01 16:46 | disposition hospice, home (50) | DRG 177 ==
LOC: ER 08:32 → MEDS 14:31 → ENPENDDIS 07-01 11:00 → MEDS 07-01 16:46
PROVIDERS: Hospitalist; Pharmacist; Physician Assistant; ADMIT Internal Medicine
DX: J15.212 Pneumonia due to Methicillin resistant Staphylococcus aureus (principal); J96.21 Acute and chronic respiratory failure with hypoxia; J96.22 Acute and chronic respiratory failure with hypercapnia; E87.1 Hypo-osmolality and hyponatremia; J44.0 Chronic obstructive pulmonary disease with (acute) lower respiratory infection; E44.0 Moderate protein-calorie malnutrition; Z68.1 Body mass index [BMI] 19.9 or less, adult; E03.9 Hypothyroidism, unspecified; M19.90 Unspecified osteoarthritis, unspecified site; F17.210 Nicotine dependence, cigarettes, uncomplicated; I10 Essential (primary) hypertension; E86.0 Dehydration; Z66 Do not resuscitate
CPT/HCPCS: 36415; 71046; 71250; 74019; 80048; 80053; 80202; 82565; 83605; 83880; 84145; 84484; 85025; 87040; 87070; 87077; 87147; 87186; 87205; 93005; 93010; 94640; 94664; 94667; 94668; 94760; 96365; 96367; 96375; 98960; 99285-25; 99407; A9270; J0713; J1650; J1956; J2543; J2930; J3370; J7030; J7050; J7512